=== PATIENT | male | born 1985 | race Caucasian/White ===

== ENCOUNTER 2024-04-25 18:51 | Emergency (ER) | payer OTHER, SELFPAY ==
[2024-04-25 18:59] VITALS: BP 134/71; PULSE 76; RESP 20; TEMP 36.9; O2SAT 99; BMI 41.6
--- NOTE | 2024-04-25 19:06 | ED_ITS ---
HPI - Extremity Injury (Lower) General Time Seen by Provider: 19:06 Date Seen: 04/25/24 Chief Complaint: Extremity Pain/Injury, Lower Stated Complaint: calf pain Time Seen by Provider: 04/25/24 18:51 Source: patient and RN notes reviewed Mode of arrival: ambulatory Limitations: no limitations History of Present Illness HPI Narrative: This 38yo male is coming in to the ED for medial calf pain that started tonight. He was mowing lawns, went to jump on the lawn more. When he landed, had a tingling discomfort in the medial calf. It became more painful. He feels like the calf is more swollen. He can walk but it does hurt to walk. Related Data Home Medications ?Medication ?Instructions ?Recorded ?Confirmed No Known Home Medications 04/25/24 04/25/24 Allergies Allergy/AdvReac Type Severity Reaction Status Date / Time No Known Drug Allergies Allergy Verified 04/25/24 19:01 Review of Systems Narrative: As per HPI. [facility] Medical History No significant past medical history Surgical History No significant past surgical history Social History Smoking Status: Never smoker Do you use any of these nicotine containing products: Vaping Products Second hand tobacco smoke exposure: No How often do you have a drink containing alcohol: never AUDIT-C Alcohol total score: 0 Non-prescribed substance use: denies use Exam Const: Vital Signs, click to edit/add: Vital Signs - 24 hr 04/25/24 18:59 Temperature 98.5 F Pulse Rate [Right Pulse Oximeter] 76 Respiratory Rate 20 Blood Pressure [Ri ght Upper Arm] 134/71 Pulse Oximetry 99 Oxygen Delivery Me thod Room Air This patient is alert, interactive, no apparent distress. His right lower extremity is without any notable visible swelling, no ecchymosis, no pitting edema. He has pain medially over the muscle body in the medial gastrocnemius. Achilles tests intact. There is palpable tenderness over this medial gastrocnemius but no palpable collection of fluid. He has preserved range of motion about his knee ankle and toes. He can plantar flex, dorsiflex and has 5/5 motor on muscle testing. Neurovascular is intact, normal sensation normal pulses. No skin changes as already noted. Calf is binge ordered at the widest part of the muscle body and is at 47 cm. Documenting provider has reviewed patient's vital signs: yes Course Course ED Course: Patient and I discussed that he clinically has a probable gastrocnemius muscle tear, he is able to walk and thus would be a more mild injury. We discussed giving him crutches for pain-free weight-bearing. He is aware of the need to ice elevate. I did provide an Carlos wrap for light compression. We discussed if it is too tight, can cut of circulation in increase swelling below it. He understands to watch for that. Icing and elevation is imperative to help decrease pain and swelling. We discussed it recommendations for orthopedic follow-up. I did provide him a note to be off work the rest of the week. Dis cussed limits with forced flexion at the ankle to decrease further injury. Did review increased risk for compartment syndrome and DVT with this type of injury. Ice pack was given here. Vital Signs Vital signs: Initial Vital Signs Temperature 98.5 F 04/25/24 18:59 Temperature Source Temporal Artery Scan 04/25/24 18:59 Pulse Rate 76 04/25/24 18:59 Respiratory Rate 20 04/25/24 18:59 Blood Pressure 134/71 04/25/24 18:59 Blood Pressure Mean 92 04/25/24 18:59 Blood Pressure Position Sitting 04/25/24 18:59 Pulse Oximetry 99 04/25/24 18:59 Oxygen Delivery Method Room Air 04/25/24 18:59 Vital Signs Temperature 98.5 F 04/25/24 18:59 Pulse Rate 76 04/25/24 18:59 Respiratory Rate 20 04/25/24 18:59 Blood Pressure 134/71 04/25/24 18:59 Pulse Oximetry 99 04/25/24 18:59 Oxygen Delivery Method Room Air 04/25/24 18:59 Temperature 98.5 F 04/25/24 18:59 Pulse Rate 76 04/25/24 18:59 Respiratory Rate 20 04/25/24 18:59 Blood Pressure 134/71 04/25/24 18:59 Pulse Oximetry 99 04/25/24 18:59 Oxygen Delivery Method Room Air 04/25/24 18:59 Discharge Plan Discharge Clinical Impression: Pain of right calf Patient Disposition: Home, Self-Care Condition: Stable Instructions: Leg Pain (ED) Additional Instructions: Clinically your exam and history are consistent with a probable partial tear of the gastrocnemius muscle. Use crutches for pain-free weight-bearing, Carlos wrap for compression but do not have this too tight. Ice and elevate this leg as m uch as you are able to to help decrease pain and swelling. Can use Tylenol and ibuprofen as needed for pain management, follow bottle directions for dosing. A note is provided to be off work. Do recommend orthopedic follow-up next week especially if ongoing issues, phone number to call to schedule that is [phone]. Prescriptions: No Action No Known Home Medications Stand Alone Forms: [employer] Info Instructions
[2024-04-25 19:52] VITALS: BP 129/70; PULSE 70; RESP 20; TEMP 36.9; O2SAT 99
[2024-04-25 19:53] VITALS: BP 129/70; PULSE 70; RESP 20; TEMP 36.9
== END 2024-04-25 19:54 | disposition home or self-care (01) ==
PROVIDERS: Emergency Provider Family Medicine
DX: M79.661 Pain in right lower leg (principal)
CPT/HCPCS: 99282; 99283